=== PATIENT | male | born 1970 | race African-American/Black ===

== ENCOUNTER 2018-12-23 08:21 | Emergency (ER) | payer BC ==
[2018-12-23 08:30] VITALS: BMI 22.9
[2018-12-23] MEDS ORDERED: VOLTAREN75 MG PO (09:24)
[2018-12-23 11:08] VITALS: BP 128/66
== END 2018-12-23 09:52 | disposition home or self-care (01) ==
LOC: D.ER 08:21
DX: L84 Corns and callosities (principal)

== ENCOUNTER 2019-04-10 07:17 | Emergency (ER) | payer BC ==
[~2019-04-10] VITALS: Ht 167.6 cm; Wt 63.6 kg
[~2019-04-10 07:17] MED LIST: VOLTAREN75 MG PO
[2019-04-10 07:39] VITALS: Ht 167.6 cm; Wt 63.6 kg
[2019-04-10] MEDS ORDERED: STERAPRED DS 1010 MG PO (07:59)
[2019-04-10] MEDS ORDERED: SKELAXIN800 MG PO (07:59)
[2019-04-10 08:28] VITALS: BP 130/70
== END 2019-04-10 08:31 | disposition home or self-care (01) ==
LOC: D.ER 07:17
DX: M54.5 Low back pain (principal); M54.30 Sciatica, unspecified side

== ENCOUNTER 2019-06-11 13:34 | Emergency (ER) | payer BC ==
[~2019-06-11] VITALS: Ht 167.6 cm; Wt 63.6 kg
[~2019-06-11 13:34] MED LIST changes: +SKELAXIN800 MG PO; +STERAPRED DS 1010 MG PO
[2019-06-11 13:48] VITALS: Ht 167.6 cm; Wt 63.6 kg
[2019-06-11 14:31] LABS: BASOPHILS 0.2 % (0-2); EOSINOPHILS 1.1 % (0-7); HEMATOCRIT 44.7 % (42.0-54.0); HEMOGLOBIN 15.7 g/dL (13.5-17.5); IMMATURE GRANULOCYTES 0.2 % (0-5); LYMPHOCYTES 33.8 % (15-50); MCH 29.2 pg (26.0-34.0); MCHC 35.1 g/dL (31.0-37.0); MCV 83.1 fL (80.0-100.0); MEAN PLATELET VOLUME 11.1 fL (7.4-10.4); MONOCYTES 9.3 % (2-11); NEUTROPHILS 55.4 % (40-80); PLATELET COUNT 97 10x3/uL (130-400); RBC 5.38 10x6/uL (4.20-6.10); RDW 13.9 % (11.5-14.5); WBC 6.6 10x3/uL (4.8-10.8)
[2019-06-11 14:41] LABS: APTT 29.7 SECONDS (22.8-39.4); INR 1.06 (0.85-1.17); PROTIME 13.3 SECONDS (11.6-15.0)
[2019-06-11 14:42] LABS: CALC OSMOLALITY 272 mosm/kg (275-300); CALCIUM 8.6 mg/dL (8.5-10.1); CARBON DIOXIDE 28.8 mmol/L (21.0-32.0); CHLORIDE - SERUM 103 mmol/L (98-107); CREATININE - SERUM 1.1 mg/dL (0.6-1.3); GLUCOSE 71 mg/dL (74-106); SODIUM 138 mmol/L (136-145); UREA NITROGEN 9 mg/dL (7-18); eGFR NON AFRICAN AMERICAN 76 mL/min (90-120)
[2019-06-11 14:57] LABS: ALBUMIN 3.4 g/dL (3.4-5.0); ALKALINE PHOSPHATASE 92 U/L (46-116); ALT (SGPT) 16 U/L (10-68); BILIRUBIN - TOTAL 0.98 mg/dL (0.2-1.3); CKMB 0.2 U/L (0.0-3.6); CREATINE KINASE 103 UL (21-232); MAGNESIUM - SERUM 1.9 mg/dL (1.8-2.4); PROTEIN - SERUM 7.1 g/dL (6.4-8.2)
[2019-06-11 14:58] LABS: TROPONIN-I < 0.017 ng/mL (0.000-0.060)
[2019-06-11 15:25] LABS: PLATELET ESTIMATE DECREASED
[2019-06-11] MEDS ORDERED: PREDNISONE20 MG PO (16:54)
[2019-06-11] MEDS ORDERED: DOXYCYCLINE HY100 M2 PO (16:54)
[2019-06-11] MEDS ORDERED: ALBUTEROL SULF8.5 GM INH (16:54)
[2019-06-11 17:54] VITALS: BP 122/81
== END 2019-06-11 17:55 | disposition home or self-care (01) ==
LOC: D.ER 13:34
PROVIDERS: Emergency Medicine
DX: J20.9 Acute bronchitis, unspecified (principal); Z72.0 Tobacco use

== ENCOUNTER 2019-07-07 14:35 | Emergency (ER) | payer BC ==
[~2019-07-07] VITALS: Ht 167.6 cm; Wt 65.9 kg
--- NOTE | ~2019-07-07 | CN ---
PATIENT NAME:BINTA HENDRICKSON MEDICAL RECORD: [id number] : 74 LOCATION:.ER ADMIT DATE: ACCOUNT: [id number] CONSULTING PHYSICIAN: RUBIN KNOX MD REFERRING PHYSICIAN: GERMAN EASTMAN MD DATE OF CONSULTATION: 07/07/2019 Cardiology Consultation ADMITTING DIAGNOSES: 1. Chest pain - sharp. 2. Abnormal ECG. HISTORY OF PRESENT ILLNESS: Mr. Hendrickson has had 1 month of sharp stabbing chest pain, worse when he takes a deep breath. Does not appear to be very positional in nature. His EKG is compatible with pericarditis. He continues to have the pain. He has not used anti-inflammatories as he has had GI upset with this in the past. PHYSICAL EXAMINATION: CONSTITUTIONAL/GENERAL APPEARANCE: Well nourished, well developed, appears stated age. EYES: Lids and conjunctivae noninjected. No discharge. No pallor. ENT: Lips within normal limit. No cyanosis. No pallor. NECK: Carotid arteries, bilateral normal upstroke. No bruits. No thrills. No jugular venous pressure or distention. CERVICAL LYMPH NODES: Nontender. Nonenlarged. THYROID: Not enlarged. No nodules. CARDIOVASCULAR: Precordial exam, nondisplaced. No heaves or pericardial thrills. Rate and rhythm, regular. Heart sounds, normal S1, normal S2. No S3, no gallop, no rub. Systolic murmur, not heard. Diastolic murmur, not heard. RESPIRATORY: Respiratory effort, unlabored. Normal curvature. No thoracic deformity. No chest wall tenderness. Percussion, resonant. Auscultation, clear. No wheezes, no rales, no rhonchi. ABDOMEN: Soft, nondistended, nontender. No abdominal pain, no vomiting and normal appetite. MUSCULOSKELETAL: No joint tenderness, normal gait, normal tone. SKIN: Warm and dry. OVERALL IMPRESSION: Chest pain, most likely pericarditis , would like to get an echo if possible today before he leaves. We will give him 1 dose of Solu-Medrol due to his hesitancy to take Motrin. I have put him on Naprosyn 400mg every day. This should treat the chest pain. No cardiac followup should be necessary. TRANSINT:[id number] Voice Confirmation ID: [id number] DOCUMENT ID: [id number] CONSULT REPORT [id number] BINTA HENDRICKSON JEFFREY MD CC: [id number] DICTATION DATE: 07/07/19 1610 HIGH RISK OB: [id number]/07/192150 DEP ER 07/07/19 [place] [id number] [place] [id number]
--- NOTE | ~2019-07-07 | EC ---
PATIENT:BINTA RESENDIZ DATE OF SERVICE: 07/07/19 SEX: M MEDICAL RECORD: [id number] DATE OF : 74 LOCATION:D.ER AGE OF PATIENT: 49 ADMISSION DATE: 07/07/19 REFERRING PHYSICIAN: INTERPRETING PHYSICIAN: RUBIN TO MD ECHOCARDIOGRAM REPORT ECHO CHARGES 4 ECHO COMPLETE Date: 07/07/19 CLINICAL DIAGNOSIS: PERICARDITIS ECHOCARDIOGRAPHIC MEASUREMENTS (adult normal given) AC root (d.<3.7cm) 2.6 cm LV Septum d (<1.2 cm> 0.8 cm Valve Excursion 1.7 cm LV Septum (systole) 0.9 cm Left Atria (s.<4.0cm> 2.9 cm LVPW d(<1.2cm) 1.0 cm RV (d.<2.3cm) 2.5 cm LVPW (sytole) 1.1 cm LV diastole(<5.6CM) 5.7 cm MV E-F(>70mm/sec) cm LV systole 4.7 cm LVOT Diameter 2.0 cm MV exc.(>10mm) cm Est.ejection fraction (50-75%) % DOPPLER: LVIT cm/sec A 58 cm/sec E 80 cm/sec LA cm/sec RVSP 21.0 mmHg LVOT 104 cm/sec AOP1/2T m/s Asc. Ao 272 cm/sec RVOT 48 cm/sec RA cm/sec PA 59 cm/sec AV Gradient Peak 29.5 mmHg AV Mean 14.8 mmHg AV Area 1.2 cm MV Gradient Peak 3.0 mmHg MV Mean 1.0 mmHg MV Area cm COMMENTS: Genetic Coordinator: [facility] Community Coordinator: 1 Dr. To TAPE# PACS Pericardial Effusion Y DATE OF SERVICE: ECHOCARDIOGRAM FINDINGS: 1. Left ventricular chamber size is within normal limits. Left ventricular systolic function is normal. Overall ejection fraction 55% to 60%. 2. Left atrium, right atrium and right ventricular chamber sizes are within normal limits. 3. Valvular structures; aortic valve demonstrates mild calcific aortic ECHOCARDIOGRAM REPORT [id number] BINTA RESENDIZ stenosis, valve area calculates 1.2 cm squared. There is a gradient of 29 mm across the valve. The remaining valvular structures have normal structure and motion. 4. Doppler interrogation elsewise reveals severe aortic insufficiency. No other valvular insufficiency or stenosis. Pulmonary systolic pressure is normal estimated at 21 mmHg. 5. Trace pericardial effusion is present. No evidence of left ventricular thrombus. TRANSINT:[id number] Voice Confirmation ID: [id number] DOCUMENT ID: [id number] RUBIN TO MD CC: [id number] DICTATION DATE: 07/08/19 1239 MICA SPREADER: 07/08/19 1313 DEP ER 07/07/19 [place] [id number] [place] [id number]
[~2019-07-07 14:35] MED LIST changes: +ALBUTEROL SULF8.5 GM INH; +DOXYCYCLINE HY100 M2 PO; +PREDNISONE20 MG PO
[2019-07-07 15:03] LABS: BASOPHILS 0.2 % (0-2); HEMATOCRIT 45.8 % (42.0-54.0); IMMATURE GRANULOCYTES 0.2 % (0-5); LYMPHOCYTES 39.2 % (15-50); MCH 28.8 pg (26.0-34.0); MCHC 34.9 g/dL (31.0-37.0); MCV 82.5 fL (80.0-100.0); MEAN PLATELET VOLUME 11.2 fL (7.4-10.4); MONOCYTES 8.5 % (2-11); NEUTROPHILS 50.9 % (40-80); PLATELET COUNT 101 10x3/uL (130-400); RBC 5.55 10x6/uL (4.20-6.10); RDW 13.7 % (11.5-14.5); WBC 5.7 10x3/uL (4.8-10.8)
[2019-07-07 15:12] LABS: APTT 28.6 SECONDS (22.8-39.4); INR 1.03 (0.85-1.17)
[2019-07-07 15:15] LABS: CALC OSMOLALITY 274 mosm/kg (275-300); CALCIUM 8.8 mg/dL (8.5-10.1); CARBON DIOXIDE 28.2 mmol/L (21.0-32.0); CHLORIDE - SERUM 103 mmol/L (98-107); CREATININE - SERUM 1.1 mg/dL (0.6-1.3); GLUCOSE 83 mg/dL (74-106); POTASSIUM - SERUM 3.8 mmol/L (3.5-5.1); SODIUM 139 mmol/L (136-145); UREA NITROGEN 8 mg/dL (7-18); eGFR NON AFRICAN AMERICAN 76 mL/min (90-120)
[2019-07-07 15:31] LABS: ALBUMIN 3.5 g/dL (3.4-5.0); ALKALINE PHOSPHATASE 84 U/L (46-116); ALT (SGPT) 19 U/L (10-68); BILIRUBIN - TOTAL 0.67 mg/dL (0.2-1.3); CKMB 0.4 U/L (0.0-3.6); CREATINE KINASE 68 UL (21-232); MAGNESIUM - SERUM 1.8 mg/dL (1.8-2.4); TROPONIN-I < 0.017 ng/mL (0.000-0.060)
[2019-07-07] MEDS ORDERED: MEDROL DOSE PACK4 MG PO (16:04)
[2019-07-07 16:08] VITALS: Ht 167.6 cm; Wt 65.9 kg
[2019-07-07] MEDS ORDERED: NAPROSYN500 MG PO (16:10)
[2019-07-07 20:21] VITALS: BP 112/65
== END 2019-07-07 20:21 | disposition home or self-care (01) ==
LOC: D.ER 14:35
PROVIDERS: Family Medicine
DX: R07.89 Other chest pain (principal); M25.50 Pain in unspecified joint; M79.10 Myalgia, unspecified site; M54.9 Dorsalgia, unspecified; Z72.0 Tobacco use